=== PATIENT | female | born 1960 | race American Indian/Alaskan Native ===

== ENCOUNTER 2018-01-07 12:31 | Observation (INO) | payer MEDICAID ==
--- NOTE | 2018-01-07 13:20 | Anesthesia Consultation ---
Anesthesia Consult and Med Hx Date of service: 01/07/18 - Airway Anesthetic Teeth Evaluation: Good ROM Head & Neck: Adequate Mental/Hyoid Distance: Adequate Mallampati Class: Class II Intubation Access Assessment: Good - Pulmonary Exam CTA: Yes - Cardiac Exam Cardiac Exam: RRR - Pre-Operative Health Status ASA Pre-Surgery Classification: ASA3 Proposed Anesthetic Plan: General Nerve Block: PEC - Pulmonary Hx Asthma: Yes (RESCUE INHALER) - Central Nervous System Hx Psychiatric Problems: No - Endocrine Hx Non-Insulin Dependent Diabetes: Yes Hx Hypothyroidism: Yes - Hematic Hx Anemia: Yes - Other Systems Hx Alcohol Use: No Hx Substance Use: No Hx Cancer: Yes
--- NOTE | 2018-01-07 13:21 | Anesthesia Day of Surgery ---
Anesthesia Day of Surgery - Day of Surgery Patient Examined: Yes Patient H&P Reviewed: Yes Patient is NPO: Yes
[2018-01-07] MEDS ORDERED: MARCAINE 0.25% INFILTRATI ONE (13:29)
[2018-01-07] MEDS ORDERED: MARCAINE 0.5% 0 ML INFILTRATI ONE (13:29)
[2018-01-07] MEDS ORDERED: BACITRACIN ONE (13:30)
[2018-01-07] MEDS ORDERED: GARAMYCIN ONE (13:32)
[2018-01-07] MEDS ORDERED: NACL P/F VIAL (10 ML) 10 ML ONE (13:32)
[2018-01-07] MEDS ORDERED: DIPRIVAN 10 MG/ML IV ONE (13:38)
[2018-01-07] MEDS ORDERED: VERSED ONE (13:39)
[2018-01-07] MEDS ORDERED: SUBLIMAZE ONE (13:39)
[2018-01-07] MEDS ORDERED: VERSED IV NR (14:00)
[2018-01-07] MEDS ORDERED: SUBLIMAZE IV ONE (14:00)
[2018-01-07] MEDS ORDERED: NACL 0.9% 1000 ML 1,000 ML IV SCH (14:00)
[2018-01-07] MEDS ORDERED: PEPCID PO NR (14:00)
[2018-01-07] MEDS ORDERED: ANCEF/STERILE WATER 2 GM/20 ML IV NR (14:00)
[2018-01-07] MEDS ORDERED: MARCAINE 0.5% INFILTRATI NR (14:00)
[2018-01-07] MEDS ORDERED: DECADRON IV NR (14:00)
[2018-01-07] MEDS ORDERED: NEURONTIN PO NR (14:00)
--- NOTE | 2018-01-07 14:24 | Short Stay Summary ---
Short Stay Documentation Date of service: 01/07/18 - History H&P: obtained from office - Allergies and Medications Current Medications: Allergies nickel Allergy (Verified 12/28/17 15:48) Rash Home Medications Medication Instructions Recorded Confirmed Last Taken Type Levothyroxine [Synthroid] 125 mcg PO QAM 12/28/17 01/07/18 01/06/18 09:00 History glyBURIDE [Glyburide] 5 mg PO BID 12/28/17 01/07/18 01/06/18 09:00 History Active Medications Bupivacaine HCl (Marcaine 0.5%) 30 ml INFILTRATI PREOP NR Stop: 01/07/18 23:00 Cefazolin Sodium (Ancef/Sterile Water 2 Gm/20 Ml) 2 gm IV PREOP NR Stop: 01/07/18 23:01 Celecoxib (Celebrex) 200 mg PO PREOP NR Stop: 01/07/18 23:01 Last Admin: 01/07/18 14:03 Dose: 200 mg Dexamethasone (Decadron) 4 mg IV PREOP NR Stop: 01/07/18 23:00 Famotidine (Pepcid) 20 mg PO PREOP NR Stop: 01/07/18 23:00 Last Admin: 01/07/18 14:04 Dose: 20 mg Gabapentin (Neurontin) 600 mg PO PREOP NR Stop: 01/07/18 23:00 Last Admin: 01/07/18 14:04 Dose: 600 mg Sodium Chloride (Nacl 0.9% 1000 Ml) 1,000 mls @ 100 mls/hr IV DIRECT DOMINICK Last Admin: 01/07/18 14:03 Dose: 100 mls/hr Midazolam HCl (Versed) 2 mg IV PREOP NR Stop: 01/07/18 23:59 Last Admin: 01/07/18 14:09 Dose: 2 mg - Brief post op/procedure progress note Date of procedure: 01/07/18 Pre-op diagnosis: 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 Post-op diagnosis: same Procedure: Left mastectomy with SLNB Anesthesia: GETA Findings: left mastectomy with radiograph specimen with present; 3 SLNs and negative for malignancy Surgeon: RORO VÁZQUEZ Research Associate Professor: LAILA SPENCER Estimated blood loss: minimal Pathology: list (left mastectomy; left SLNSx) Specimen disposition: to lab (left mastectomy, 3 SLNs) Condition: stable - Disposition Condition at discharge: Good Disposition: DC/TX-02 SHRT-TRM GEN HOSP IP Short Stay Discharge Plan Activity: other (no heavy lifting) Diet: regular Wound: other (per PRS) Follow up with: AMY RAMÍREZ MD [Primary Care Provider] - 7 Days RORO VÁZQUEZ MD [Staff Physician] - 7 Days
--- NOTE | 2018-01-07 14:28 | Operative Report ---
Operative Report Operative Report: Date of Service: January 07, 2018 Preoperative diagnosis: Multicentric left breast cancer of the upper inner quadrant and central breast Postoperative diagnosis: Same Procedure: Left total mastectomy with sentinel lymph node biopsy Surgeon: Mayra Giang M.D. Asst.: Pretty Dawson MD Anesthesia: Gen. Findings: Left breast clip present within mastectomy. Total of 3 sentinel lymph nodes identified and negative for malignancy on frozen section of pathology, 1 SLN with some suspicion for atypia but negative for malignancy Complications: None Drains: per PRS Estimated blood loss: Minimal Disposition: PACU in good condition Indications for operative procedure: This is a 57-year-old lady with stage I multicentric left breast cancer of the upper inner quadrant and central breast. Recommendations were to proceed with a left total mastectomy given multicentric left breast cancer. Patient wished to proceed with plastic reconstructive surgery with tissue fishing gear mechanic placement. Procedure in detail: Anesthesia placed left pectoral muscle block prior to going to the operating room. The patient was taken to the operating room and was placed supine. Gen. anesthesia was administered. The left nipple was injected with radioisotope. The left breast was prepped and draped in the normal sterile operative fashion. Timeout was performed. Typical mastectomy incision marking was made. Known breast cancer at the 11:00 position 14 cm from the nipple, ultrasound used as well. Attention was taken towards the left breast. A gamma probe was inserted into the axilla to identify the sentinel lymph node location with uptake noted. A skin incision was made with a 10 blade knife and dissection taken down to the subcutaneous tissues. First began raising of the superior flap to the level of the clavicle superiorly and posteriorly to the pectoralis muscle. At area of known cancer at the 11:00 position 14 cm from the nipple; significant fibrotic tissue was noted anterior to the tumor and later skin was revised with removal of skin anterior to the cancer with additional superior skin margins taken 2 cm from cancer as well. Skin of the central cancer from breast MRI was removed as well and incorporated in the mastectomy. The medial flap was raised to the level of the sternum and posteriorly to the pectoralis muscle. Followed by raising of the lateral flap to the level of the latissimus dorsi muscle and taken down posteriorly. The gamma probe was inserted into the axilla. The axillary fascia as opened using the bovie cautery. 3 sentinel lymph nodes were identified with the gamma probe, some fibrotic tissue noted of SLNs. All remaining counts were less than 10% of the highest SLN. Lymph nodes were sent to pathology with findings negative for malignancy noted on frozen section and one SLN with some suspicion for atypia but negative for malignancy. Given no malignancy found on frozen of SLNs, did not proceed with an axillary lymph node dissection. Then proceeded with raising of the inferior flap to the level of the inframammary fold taken posterior to the pectoralis muscle. The mastectomy/ breast was removed from the pectoralis muscle without incident. The specimen was appropriately marked and sent to radiology with findings of breast clip present and sent to pathology. Hemostasis was obtained with the bovie cautery. Plastic surgery then proceeded with tissue fishing gear mechanic placement
[2018-01-07] MEDS ORDERED: GARAMYCIN IV ONE (14:30)
[2018-01-07] MEDS ORDERED: BACITRACIN IR ONE (14:30)
[2018-01-07] MEDS ORDERED: ANCEF IV ONE (14:30)
[2018-01-07] MEDS ORDERED: NACL P/F VIAL (10 ML) INFILTRATI ONE (14:30)
[2018-01-07] MEDS ORDERED: NACL 0.9% IR ONE ×2 (14:30)
[2018-01-07] MEDS ORDERED: WATER FOR IRRIG STERILE IR ONE (14:30)
[2018-01-07] MEDS ORDERED: ePHEDrine SULFATE ONE (15:07)
[2018-01-07] MEDS ORDERED: ZEMURON IV ONE (15:08)
[2018-01-07] MEDS ORDERED: NEO SYNEPHRINE/NS Syringe(OR USE) IV ONE (15:08)
[2018-01-07] MEDS ORDERED: REGLAN PO PRN (15:59)
[2018-01-07] MEDS ORDERED: BENADRYL PO PRN (15:59)
[2018-01-07] MEDS ORDERED: SODIUM CHLORIDE FLUSH SYRINGE 10 ML IV PRN (15:59)
[2018-01-07] MEDS ORDERED: TYLENOL PO PRN (15:59)
[2018-01-07] MEDS ORDERED: ZOFRAN IV PRN (15:59)
--- NOTE | 2018-01-07 16:02 | Post Operative Note ---
Pre-op diagnosis: left breast cancer Post-op diagnosis: same Findings: left breast defect Procedure: left breast reconstruction with tissue physician pediatrician and mesh Anesthesia: GETA Surgeon: TRISTIAN FERRO Estimated blood loss: minimal Condition: stable Disposition: PACU
[2018-01-07] MEDS ORDERED: ROBINUL ONE (18:09)
[2018-01-07] MEDS ORDERED: NEOSTIGMINE ONE (18:09)
[2018-01-07] MEDS ORDERED: ZOFRAN ONE (18:15)
--- NOTE | 2018-01-07 19:52 | Operative Report ---
PREOPERATIVE DIAGNOSIS: Left breast cancer. POSTOPERATIVE DIAGNOSIS: Left breast cancer. PROCEDURE: 1. Left breast reconstruction with tissue bed control specialist, CPT CODE 25080-F. 2. Left breast reconstruction utilizing biological mesh, FlexHD, CPT CODE 12900-R. SURGEON: Vernon Loja MD ULTRASOUND SONOGRAPHER: None. ANESTHESIA: General. OPERATIVE INDICATIONS: This is a 57-year-old female, who was referred to me by Dr. Giang for left-sided breast cancer. She was going to undergo a left mastectomy and wanted reconstructive options. The options were presented to her and she elected to proceed with a left-sided tissue bed control specialist reconstruction for now and await final pathology and then discuss future surgical options either with implant or autologous tissue. Risks and benefits of surgery were discussed with the patient. She agreed. OPERATIVE DETAILS: After informed consent was obtained, the patient was brought to the operating room and placed supine on the operating table. Preoperative antibiotics and general anesthesia were administered. The patient was prepped and draped in usual sterile fashion. Time-out was called verifying the patient, operation being performed, side and site of the operation. Dr. Giang begin the operation, performed her mastectomy and sentinel lymph node biopsy and left, which will be dictated separately. She asked me to come to the room when she was completed. I scrubbed in and she had a left mastectomy defect. I first began by raising the pectoralis major muscle and created a subpectoral pocket. It then took a [place] [employer] ultra high profile 535 mL tissue bed control specialist with serial #[id number] placed that into the prepectoral space. We removed all the air from the bed control specialist, was soaked in antibiotic irrigation, and we then supported it with a piece of FlexHD acellular dermal matrix. We used a medium perforated pliable shaped 11 x 20 cm, serial #[id number] and I secured that to the inframammary fold and lateral breast border using 2-0 Vicryl interrupted sutures. The pectoralis major muscle was then sutured to the mesh using 2-0 Vicryl sutures as well. The pocket was copiously irrigated with antibiotic irrigation. Hemostasis was achieved. Dr. Giang had mentioned that she was a little bit concerned about an area superiorly on the breast skin flap where the tumor may have possibly had some involvement. Given the fact that the patient did have still redundant excess skin, I recommend that we go ahead and just remove that skin margins so that she can feel more comfortable that the margins were negative and we would still have enough skin left to close. We will just leave the bed control specialist empty for now and then expand her postoperatively. I then excised an additional upper margin and passed it off the field for her and then proceeded with closure. A 15-Kosovan and a 19-Kosovan round Kyle drain were placed and then closure was performed with 3-0 Monocryl deep dermals and a 3-0 Monocryl barbed running subcuticular stitch. Dermabond was applied. Sterile dressing was applied. Sponge and instrument count correct at the end of the procedure. ESTIMATED BLOOD LOSS: Less than 50 mL SPECIMENS: None. FINDINGS: Left breast defect. JOB# [id number] ARNALDO/LION
[2018-01-07] MEDS ORDERED: ANCEF/NS 1 GM/50 ML 1 GM/50 ML BAG IV SCH (22:00)
[2018-01-07] MEDS: ceFAZolin 1 GM in NACL 0.9% 20 ML IV SCH (22:19)
[2018-01-07] MEDS: COLACE PO SCH (22:19)
[2018-01-07] MEDS: LACTATED RINGERS 1,000 ML IV SCH (22:19)
[2018-01-08] MEDS: ceFAZolin 1 GM in NACL 0.9% 20 ML IV SCH (06:14)
[2018-01-08] MEDS: LACTATED RINGERS 1,000 ML IV SCH (06:14)
[2018-01-08] MEDS: HEPARIN SUB-Q SCH ×2 (06:14→14:34)
[2018-01-08] MEDS: PERCOCET 5/325 PO PRN ×2 (06:26→12:42)
--- NOTE | 2018-01-08 06:27 | Progress Note ---
Assessment and Plan POD1 s/p left breast recon with audio/visual manager DC home today once pain controlled and mobilized. Subjective Date of service: 01/08/18 Narrative: doing well, minimal pain Objective Vital Signs - 12hr 01/07/18 01/07/18 01/07/18 18:30 18:45 19:00 Temperature 96.7 F L Pulse Rate 68 64 66 Respiratory 14 14 17 Rate Blood Pressure 122/63 125/61 131/66 Blood Pressure [Right] O2 Sat by Pulse 100 100 100 Oximetry 01/07/18 01/07/18 01/07/18 19:15 19:30 19:45 Temperature 96.7 F L Pulse Rate 66 67 66 Respiratory 14 16 14 Rate Blood Pressure 123/62 127/64 127/64 Blood Pressure [Right] O2 Sat by Pulse 100 100 100 Oximetry 01/07/18 01/08/18 01/08/18 20:00 00:12 04:18 Temperature 97.8 F 98.7 F 98.9 F Pulse Rate 71 66 69 Respiratory 18 20 18 Rate Blood Pressure 102/50 109/51 Blood Pressure 130/64 [Right] O2 Sat by Pulse 97 97 97 Oximetry - General physical appearance Narrative Exam: feels well, no issues. Looks good. - Additional Exam Left breast no hematoma or seroma. Skin perfusion good. Filler Machine Operator in place. Drains are slightly sanguinous but old blood.
--- NOTE | 2018-01-08 06:33 | Discharge Summary ---
Providers - Providers Date of Admission: 01/07/18 15:59 Date of discharge: 01/08/18 Attending physician: TRISTIAN FERRO Primary care physician: AMY RAMÍREZ Hospitalization Reason for admission: pain control Procedures: left mastectomy and reconstruction with education director Hospital course: Admitted overnight for observation and pain control. Sent home in morning after evaluation and doing well. Disposition: DC-01 TO HOME OR SELFCARE Core Measure Documentation - Palliative Care Palliative Care/ Comfort Measures: Not Applicable - Core Measures Any of the following diagnoses?: none - VTE Discharge Requirements Deep Vein Thrombosis/Pulmonary Embolism Present on Admission: No - Heart Failure Discharge Requirements NURIS/ARB for LVSD if EF <40%: Not Applicable - Stroke Discharge Requirements Statin for LDL = or >70 mg/dl on DC: No Exam - Physical Exam Narrative exam: NAD, AAO x 3 Left breast soft, no hematoma, drains clearing up - Constitutional Vitals: Temp Pulse Resp BP Pulse Ox 98.9 F 69 18 109/51 97 01/08/18 04:18 01/08/18 04:18 01/08/18 04:18 01/08/18 04:18 01/08/18 04:18 Plan Activity: other (do lifting greater than 10 pounds. Slowly work on range of motion. ) Diet: regular Wound: open to air, other (wear breast binder) Follow up with: AMY RAMÍREZ MD [Primary Care Provider] - 7 Days RORO VÁZQUEZ MD [Staff Physician] - 7 Days TRISTIAN FERRO MD [Staff Physician] - 7 Days Prescriptions: Docusate Sodium [Colace CAP] 100 mg PO BID #60 capsule oxyCODONE /ACETAMINOPHEN [Percocet 5/325 mg] 1 tab PO Q6H PRN #20 tablet PRN Reason: Pain, Moderate (4-6)
[2018-01-08] MEDS: COLACE PO SCH (12:43)
[2018-01-08] MEDS ORDERED: FLEXERIL PO PRN (13:53)
--- NOTE | 2018-01-08 13:56 | XRay Report ---
SPECIMEN RADIOGRAPH LEFT BREAST: 01/07/18 12:31:00 CLINICAL: Mastectomy specimen FINDINGS: The mastectomy specimen contains a single biopsy clip. No other significant finding.
[2018-01-08 14:29] VITALS: BP 91/45
== END 2018-01-08 15:30 | disposition home or self-care (01) ==
LOC: OR 12:31 → OB 15:59
PROVIDERS: ADMIT Plastic Surgery; ATTEND Plastic Surgery
DX: C50.912 Malignant neoplasm of unspecified site of left female breast (principal)
CPT/HCPCS: 19303; 64450; 76098; 78800; 82962; 88300; 88305; 88307; 88309; 88331; 88342; 96374; 96375; 96376; A9541; C1789; G0378; J0690; J1100; J1580; J2250; J2370; J2405; J2704; J2710; J3010; J7030; J7120; Q4128; 88302; 88333